=== PATIENT | male | born 1970 | race Caucasian/White ===

== ENCOUNTER 2017-06-25 08:05 | Day surgery (SDC) | payer OTHER ==
[~2017-06-25] VITALS: Ht 172.7 cm; Wt 115.7 kg
[~2017-06-25 08:05] MED LIST: GLIP5; GLIP5 PO; METF500C PO
== END 2017-06-25 22:41 | disposition home or self-care (01) ==
LOC: ORSCMMR 08:05
PROVIDERS: Internal Medicine Gastroenterology
PROC: 0DBE8ZX Excision of Large Intestine, Via Natural or Artificial Opening Endoscopic, Diagnostic (ICD-10-PCS; principal; 2017-06-25 09:30)
DX: R19.7 Diarrhea, unspecified (principal); K57.30 Diverticulosis of large intestine without perforation or abscess without bleeding; B02.22 Postherpetic trigeminal neuralgia; E11.9 Type 2 diabetes mellitus without complications; F17.210 Nicotine dependence, cigarettes, uncomplicated; Z79.82 Long term (current) use of aspirin
CPT/HCPCS: 82947; 88305; J7120

== ENCOUNTER 2017-12-12 14:50 | Emergency (ER) | payer OTHER ==
[~2017-12-12] VITALS: Ht 180.3 cm; Wt 109.8 kg
== END 2017-12-12 16:25 | disposition home or self-care (01) ==
LOC: ER 14:50
DX: E11.621 Type 2 diabetes mellitus with foot ulcer (principal); L97.519 Non-pressure chronic ulcer of other part of right foot with unspecified severity; F17.210 Nicotine dependence, cigarettes, uncomplicated; Z79.84 Long term (current) use of oral hypoglycemic drugs
CPT/HCPCS: 11042; 99282-25

== ENCOUNTER 2019-06-19 19:17 | Inpatient (IN) | payer OTHER ==
[~2019-06-19] VITALS: Ht 180.3 cm; Wt 133.5 kg
[2019-06-19] MEDS ORDERED: BASAGLAR K100 UNIT/2 SC (20:37)
[2019-06-19 20:41] LABS: BASOPHILS ABSOLUTE AUTO 0.08 K/mm3 (0.00-0.23); BASOPHILS PERCENT AUTO 1 % (0-2); EOSINOPHILS PERCENT AUTO 2 % (0-6); Hematocrit 46.4 % (37.0-53.0); Hemoglobin 14.3 g/dL (13.5-17.5); IMMATURE GRAN ABSOLUTE AUTO 0.02 K/mm3 (0.00-0.10); IMMATURE GRAN PERCENT AUTO 0 % (0-1); LYMPHOCYTES ABSOLUTE AUTO 2.32 K/mm3 (0.84-5.20); LYMPHOCYTES PERCENT AUTO 25 % (21-46); MONOCYTES ABSOLUTE AUTO 0.78 K/mm3 (0.16-1.47); MONOCYTES PERCENT AUTO 9 % (4-13); Mean Corpuscular HGB 26.4 pg (26.0-34.0); Mean Corpuscular HGB Conc 30.8 g/dL (31.5-36.5); Mean Corpuscular Volume 86 fL (80-100); Mean Platelet Volume 12.2 fL (9.1-12.4); NEUTROPHILS ABSOLUTE AUTO 5.74 K/mm3 (1.96-9.15); NEUTROPHILS PERCENT AUTO 63 % (41-73); Platelet Count 227 K/mm3 (150-400); RDW Coefficient Variation 13.9 % (11.7-14.2); RDW Standard Deviation 42.6 fL (35.1-46.3); Red Blood Cell Count 5.41 M/mm3 (4.30-5.90); White Blood Cell Count 9.14 K/mm3 (4.00-11.30)
[2019-06-19 21:09] LABS: Albumin/Globulin Ratio 0.9 (0.8-1.8); Bilirubin, Total 1.1 mg/dL (0.1-1.0); Calcium, Blood 8.6 mg/dL (8.5-10.1); Creatinine, Blood 1.53 mg/dL (0.60-1.20); Globulin, Blood 3.2 g/dL (2.2-4.0); Potassium, Blood 4.4 mmol/L (3.5-5.5); Total Protein, Blood 6.2 g/dL (6.4-8.2); Troponin I 0.04 ng/mL (0.000-0.040)
[2019-06-20 04:25] LABS: Hemoglobin 14.2 g/dL (13.5-17.5); Mean Corpuscular HGB 26.2 pg (26.0-34.0); Mean Corpuscular HGB Conc 30.9 g/dL (31.5-36.5); Mean Corpuscular Volume 85 fL (80-100); Mean Platelet Volume 12.1 fL (9.1-12.4); Platelet Count 214 K/mm3 (150-400); RDW Coefficient Variation 13.9 % (11.7-14.2); RDW Standard Deviation 42.9 fL (35.1-46.3); Red Blood Cell Count 5.42 M/mm3 (4.30-5.90); White Blood Cell Count 9.73 K/mm3 (4.00-11.30)
[2019-06-20 04:51] LABS: Albumin, Blood 3.1 g/dL (3.4-5.0); Bilirubin, Total 1.4 mg/dL (0.1-1.0); Calcium, Blood 8.7 mg/dL (8.5-10.1); Creatinine, Blood 1.35 mg/dL (0.60-1.20); Globulin, Blood 3.2 g/dL (2.2-4.0); Total Protein, Blood 6.3 g/dL (6.4-8.2)
--- NOTE | 2019-06-20 06:30 | NUR ---
PCU ADMIT / SHIFT SUMMARY PT BROUGHT TO PCU RM 04 FROM ER BY [facility] @ APPROX 0000. PT A&O X4. VSS. MONITOR SHOWS AFIB, HR 80's-110's. PT BROUGHT TO FLOOR W/ CARDIZEM GTT @ 10 MLS/HR. CARDIZEM TITRATED TO 5 MLS/HR THIS SHFIT. LUNG SOUNDS CLEAR, SPO2 > 92% ON RA. +4 BLE EDEMA & +2 ABD EDEMA NOTED. PT REPORTS DIFFICULTY AMBULATING AT HOME D/T SWELLING. PT RECIEVING IV LASIX PER ORDERS. PT SBA FOR TRANSFER. WILL CONTINUE TO MONITOR AND PROVIDE CARE UNTIL REPORT OFF TO DAY SHIFT RN.
--- NOTE | 2019-06-20 08:02 | NUR ---
NURSING PCU DAYSHIFT: Assumed care of pt at approx 0700. A/O, cooperative w/care. Denies any pain/discomfort at rest. Skin is fairly intact though red rash noted to BLE. C/O general weakness in LE, uses a cane for ambulation. Tele in place, afib w/HR 90-110, no c/o CP/pressure, SBP 103, 2-3+ edema from lower abd to b/l feet, pulses palp. 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 Abd firm r/t edema, BT+, nontender, voiding w/o difficulty per pt. PIV x1, diltiazem gtt infusing at 5cc/hr. Pt denies any current needs or questions regarding plan of care. Call light in reach and pt is able to use w/o difficulty. Awaiting rounding from PMD, cont to monitor for any changes.
[2019-06-20 08:28] LABS: Source, Urine Clean Catch
[2019-06-20 08:31] LABS: Bilirubin, Urine Neg (Neg); Blood, Urine Neg (Neg); Glucose Qualitative, Urine Neg (Neg); Ketones, Urine Neg (Neg); Leukocyte Esterase, Urine Neg (Neg); Nitrite, Urine Neg (Neg); Protein, Urine Neg (Neg); Urobilinogen, Urine NORM (Normal)
[2019-06-20 08:39] LABS: Appearance, Urine Clear (Clear); Color, Urine Yellow (P-Yellow)
--- NOTE | 2019-06-20 11:23 | NUR ---
ECHOCARDIOGRAM COMPLETED
--- NOTE | 2019-06-20 19:20 | NUR ---
SHIFT SUMMARY PT IS INDEPENDENT IN ROOM, A&O X4, DENIES CP, VSS, C/O INTERMITENT SOB, O2 SATS REMAIN >94% ON RA. PT ENC TO ELEVATE LOWER EXTREMITIES WHEN POSSIBLE TOLERATED. PT WILL BE NPO AFTER MIDNIGHT FOR POSSIBLE ANGIO TOMORROW PER . IV IS SL AT THIS TIME. CALL LIGHT IN REACH. REPORT GIVEN TO HOANG FORD.
[2019-06-21 03:58] LABS: Hematocrit 41.3 % (37.0-53.0); Mean Corpuscular HGB 26.6 pg (26.0-34.0); Mean Corpuscular HGB Conc 31.5 g/dL (31.5-36.5); Mean Corpuscular Volume 85 fL (80-100); Mean Platelet Volume 12.6 fL (9.1-12.4); Platelet Count 199 K/mm3 (150-400); RDW Coefficient Variation 13.8 % (11.7-14.2); RDW Standard Deviation 42.5 fL (35.1-46.3); Red Blood Cell Count 4.89 M/mm3 (4.30-5.90); White Blood Cell Count 10.73 K/mm3 (4.00-11.30)
[2019-06-21 04:16] LABS: Albumin, Blood 2.7 g/dL (3.4-5.0); Anion Gap 8 mmol/L (6-16); Blood Urea Nitrogen 24 mg/dL (8-24); CO2, Blood 23 mmol/L (21-32); Calcium, Blood 8.2 mg/dL (8.5-10.1); Chloride, Blood 108 mmol/L (98-108); Creatinine, Blood 1.26 mg/dL (0.60-1.20); Glomerular Filtration Rate >60 (60-); Glucose, Blood 133 mg/dL (70-99); Magnesium, Blood 1.7 mg/dL (1.6-2.4); Phosphorus, Blood 3.7 mg/dL (2.5-4.9); Potassium, Blood 3.5 mmol/L (3.5-5.5); Sodium, Blood 139 mmol/L (136-145)
--- NOTE | 2019-06-21 05:42 | NUR ---
SHIFT SUMMARY PT A&O X4. NO EVENTS OVER NIGHT. VSS. MONITOR SHOWS AFIB, HR 90's-110's. SPO2 > 92% ON RA. NO C/O PAIN/DISCOMFORT. +3-4 BLE EDEMA. +1 ABD EDEMA. PT REPORTS EDEMA "FEELS LIKE IT'S IMPROVING." PT W/ REPORT OF LIQUID BM DURING DAY 06/20 & FURTHER REPORTS CHRONIC DIARRHEA, STATING "I HAVEN'T HAD A SOLID BOWEL MOVEMENT IN OVER 15 YRS." PT NPO SINCE MIDNIGHT FOR POSSIBLE ANGIOGRAM TODAY. WILL CONTINUE TO MONITOR AND PROVIDE CARE UNTIL REPORT OFF TO DAY SHIFT RN.
--- NOTE | 2019-06-21 14:40 | NUR ---
PT TO TRIPE FINISHER AT THIS TIME
--- NOTE | 2019-06-21 20:24 | NUR ---
SHIFT ASSESSMENT POST ANGIO TODAY BY . PT REMAINS A&O X4, INDEPENDENT IN THE ROOM, ON ROOM AIR, RIGHT RADIAL TR BAND IN PLACE, NO HEMATOMA/BLEEDING NOTED. RIGHT AC DRSG REMAINS INTACT, DRAINAGE HAS NOT EXTENDED BEYOND THE BORDERS TRACED, ARM BOARD IN PLACE, PT EDUCATED ON ACTIVITY RESTRICTIONS AND NOT TO USE HIS R ARM. PT DENIES PAIN/SOB, VSS. INDEPENDENT IN THE ROOM, FAMILY AT THE BEDSIDE. WILL BE IN TOMORROW TO DISCUSS TRANSFER TO HIGHER LEVEL OF CARE WITH PT. REPORT GIVEN TO HOANG RN. CALL LIGHT IN REACH .
[2019-06-22 04:23] LABS: Anion Gap 8 mmol/L (6-16); Blood Urea Nitrogen 22 mg/dL (8-24); Bun/Creatinine Ratio 19.5 (12.0-20.0); CO2, Blood 25 mmol/L (21-32); Calcium, Blood 8.2 mg/dL (8.5-10.1); Chloride, Blood 108 mmol/L (98-108); Creatinine, Blood 1.13 mg/dL (0.60-1.20); Glomerular Filtration Rate >60 (60-); Glucose, Blood 89 mg/dL (70-99); Magnesium, Blood 1.6 mg/dL (1.6-2.4); Potassium, Blood 3.5 mmol/L (3.5-5.5); Sodium, Blood 141 mmol/L (136-145)
--- NOTE | 2019-06-22 05:40 | NUR ---
SHIFT SUMMARY, ASSUMED CARE AT 1900. VERY UPSET AT THAT TIME DUE TO EXTREME COBB AND REPORTS NO ONE WOKE HIM UP TO GET PAIN MED AND EAT . REPORT FROM DAYS HE HAD REFUSED PAIN MED AND SLEPT THRU DINNER , SO SAVED . PRESENTED DINNER AND ANGRY SINCE HE DID NOT LIKE IT . LATER REQ PAIN MED AND NORCO GIVEN AND THEN HAD NO RELIEF FOR COBB AND INCISIONAL PAIN AND KNEW ONE PLAIN TYLENOL WOULD BE FINE. GIVEN AND PAIN COMPLETELY GONE. ONLY SORENESS FOR LT SHOULDER /CHEST WALL WITH SUDDEN MOVEMENT. REFUSED ICE. NO CREPITUS DISCOVERED BUT VERY GUARDED IN ALLOWING PALPATION OF SITE. PALPATED AREA OF GREATEST SORENESS IS AREA TOWARD STERNUM FROM THE SMALL TELFA DSG. APPEARS ORANGE DOT OF DRAINAGE AND NO FURTHER OR FRESH SERO SANG . SLING ON AT ALL TIMES AND AWARE OF MOVEMENT RESTRICTIONS. OOB IN ROOM AND FOLLOWS INST. SR ALL NOC NO PACED RHYTHM.
--- NOTE | 2019-06-22 06:04 | NUR ---
ASSUMED CARE AT 1900. SEE HC SITE CARE OF RT TR SITE. BY 0330 OCCLUSIVE DSG ON AND SITE WNL ARM BOARD ON AT ALL TIMES. CIRC CHECK WNL AND NO HEMATOMA. ANCSARCA AND NOTED RT MID ARM SWOLLEN AND FORMER DSG REMOVED AND SITE WNL BUT STILL MORE SWOLLEN THAN LT. IT APPEARED TO BE PART OF TIRE SPECIALIST INTERVENTION.OOB PER SELF AND DENIES ANY ADVERSE ISSUES OR PAIN. NOTED SOB ON EXERTION AND NOTED AT REST AF HR AVERAGE 115 AND WHEN UP 130. NOTED WHEN SLEEPING SOME EVIDENCE OF MILD SNORING AND MORE SHALLOW BREATHING. AND SLIGHT DROP IN SAT READ TO 90%. REPORTS HX OF NARCOLEPSY . SLEPT WELL LAST NOC
[2019-06-22 09:32] LABS: International Normalized Ratio 1.36; Prothrombin Time Results 14.3 Sec (9.7-11.5)
--- NOTE | 2019-06-22 10:21 | NUR ---
ASSUMED CARE - PCU DAYSHIFT PATIENT ALERT AND ORIENTED X4 - UNINTERESTED IN MEDICATION AND CHF EDUCATION. PATIENT HAS 4+ PITTING EDEMA IN BLE AND RED TO SCABBING RASH ON FRONT AND BACK OF CALFS. PATIENT UP INDEPENDENTLY FOR A SHOWER - TOLERATED WELL. PATIENT ALSO HAS RASH ON GROIN, PATIENT STATES IT IS FROM RUBBING - PATIENT APPLIED POWDER TO AREA. PATIENT REMAINS IN AFIB IN THE 120-140'S AT THIS TIME - PATIENT HAD A DOSE INCREASE ON HIS METOPROLOL - WILL MONITOR AND SEE IF RATE GOES DOWN, IF IT DOES NOT, WILL CALL PROVIDER. [facility] CALLED THIS AM TO UPDATE THAT A ROOM WILL NOT BE AVAILABLE UNTIL THIS EVENING - PATIENT AND COSMETIC MANAGER UPDATED. CALL LIGHT W/I REACH. WILL CONTINUE TO MONITOR.
--- NOTE | 2019-06-22 16:28 | NUR ---
COBRA TRANSFER SUMMARY PATIENT LEFT UNIT VIA [facility] WITH EMS PERSONAL. RESP E/U ON ROOM AIR; VSS. PATIENT AMBULATED TO [facility] FROM UNIT BED WITH STEADY GAIT. HR REMAINS AFLUTTER 120-140 T/O SHIFT. HEPARIN GTT RUNNING PER PHARMACY CONSULT. REPORT GIVEN TO EMS AND [email or web address] PERSONAL. PATIENT LEFT IN NO ACUTE DISTRESS.
== END 2019-06-22 15:34 | disposition short-term general hospital (02) | DRG 286 ==
LOC: ER 19:17 → PCU 19:18
PROVIDERS: Hospitalist; Internal Medicine; Internal Medicine Cardiovascular Disease; Physician Assistant; ADMIT Internal Medicine
PROC: 4A023N8 Measurement of Cardiac Sampling and Pressure, Bilateral, Percutaneous Approach (ICD-10-PCS; principal; 2019-06-21)
PROC: B2111ZZ Fluoroscopy of Multiple Coronary Arteries using Low Osmolar Contrast (ICD-10-PCS; 2019-06-21)
DX: I48.91 Unspecified atrial fibrillation (principal); I50.21 Acute systolic (congestive) heart failure; N17.9 Acute kidney failure, unspecified; E11.9 Type 2 diabetes mellitus without complications; I25.10 Atherosclerotic heart disease of native coronary artery without angina pectoris; E66.01 Morbid (severe) obesity due to excess calories; Z68.37 Body mass index [BMI] 37.0-37.9, adult; Z79.4 Long term (current) use of insulin
CPT/HCPCS: 36415; 71045; 80048; 80053; 80069; 81003; 82947; 83036; 83735; 83880; 84484; 85025; 85027; 85610; 85730; 93005; 93010; 93306; 93460; 96365; 96366; 96375; 96376; 99152; 99153; 99285-25; A9270-GY; C1769; C1894; G0378; J1644; J1940; J2250; J3010; J7030; Q9967

== ENCOUNTER → 2024-05-31 | Outpatient (CLI) | payer OTHER ==
[~2024-05-31] MED LIST changes: +BASAGLAR K100 UNIT/2 SC
== END | disposition home or self-care (01) ==
LOC: LAB 12:10 → LAB SHORT 12:10
DX: L02.212 Cutaneous abscess of back [any part, except buttock and flank] (principal)
CPT/HCPCS: 87070; 87075; 87077; 87205

== ENCOUNTER → 2024-06-16 | Outpatient (CLI) | payer OTHER | END | disposition home or self-care (01) | LOC: LAB SHORT 14:26 → PLD 14:26 → LAB 14:26 | DX: L72.0 Epidermal cyst (principal); D49.2 Neoplasm of unspecified behavior of bone, soft tissue, and skin | CPT/HCPCS: 88305 ==